=== PATIENT | male | born 1995 | race Two or more races ===

== ENCOUNTER 2017-09-06 01:08 | Emergency (ER) | payer OTHER ==
--- NOTE | 2017-09-06 01:54 | ED PDOC ---
HPI: Psych/Substance Abuse Chief Complaint (Provider): psych eval History Per: EMS, Family Additional Complaint(s): 22 y/o male brought in by EMS and PD for psych eval. As per EMS, mother called because patient has been off of his psychiatric medication x months and was acting bizarre at home tonight and also became aggressive towards her. Patient agitated upon arrival, HPI slightly limited due to patient's current state. <Mery Mohan - Last Filed: 09/06/17 05:47> <Guevara Mohan - Last Filed: 09/06/17 06:37> Time Seen by Provider: 09/06/17 01:21 Chief Complaint (Nursing): Psychiatric Evaluation Past Medical History Reviewed: Historical Data, Nursing Documentation, Vital Signs Vital Signs: Last Vital Signs Temp Pulse 87 09/06/17 01:21 Resp 18 09/06/17 01:21 BP 144/84 09/06/17 01:21 Pulse Ox - Medical History PMH: Schizophrenia - Surgical History Surgical History: No Surg Hx - Family History Family History: States: No Known Family Hx <Mery Mohan - Last Filed: 09/06/17 05:47> Vital Signs: Last Vital Signs Temp Pulse 69 09/06/17 04:47 Resp 16 09/06/17 04:47 BP 105/59 L 09/06/17 04:47 Pulse Ox 99 09/06/17 04:47 <Guevara Mohan - Last Filed: 09/06/17 06:37> - Allergies Allergies/Adverse Reactions: Allergies Allergy/AdvReac Type Severity Reaction Status Date / Time No Known Allergies Allergy Verified 09/06/17 01:12 Review of Systems ROS Statement: Except As Marked, All Systems Reviewed And Found Negative Psych: Positive for: Psychosis <Mery Mohan - Last Filed: 09/06/17 05:47> Physical Exam - Reviewed Nursing Documentation Reviewed: Yes Vital Signs Reviewed: Yes - Physical Exam Appears: Positive for: Well, Non-toxic, Uncomfortable (agitated) Head Exam: Positive for: ATRAUMATIC, NORMAL INSPECTION, NORMOCEPHALIC Skin: Positive for: Normal Color Eye Exam: Positive for: Normal appearance ENT: Positive for: Normal ENT Inspection Cardiovascular/Chest: Positive for: Regular Rate, Rhythm Respiratory: Positive for: Normal Breath Sounds Gastrointestinal/Abdominal: Positive for: Normal Exam Back: Positive for: Normal Inspection Extremity: Positive for: Normal ROM Neurologic/Psych: Positive for: Alert, Oriented (x3) <Mery Mohan - Last Filed: 09/06/17 05:47> - Laboratory Results Result Diagrams: 09/06/17 02:47 09/06/17 02:47 - Progress ED Course And Treament: Patient uncooperative, out in hallway after being asked to stay in exam room. Patient verbally aggressive towards staff Patient unwilling to comply with alternative measures offered; medicated for acute agitation/safety 2:00 Patient sleeping; vitals stable on monitor 3:30 Patient sleeping; vitals stable on monitor 5:00 Patient sleeping; vitals stable on monitor <Mery Mohan - Last Filed: 09/06/17 05:47> - Laboratory Results Result Diagrams: 09/06/17 02:47 09/06/17 02:47 <Guevara Mohan - Last Filed: 09/06/17 06:37> Medical Decision Making Medical Decision Makin Resting comfortably, will endorse to day team Dr. Ballard pending final dispo by crisis <Guevara Mohan - Last Filed: 09/06/17 06:37> Disposition - Disposition Disposition Time: 06:00 Patient Signed Over To: Guevara Mohan Handoff Comments: pending re-eval by crisis and final dispo <Mery Mohan - Last Filed: 09/06/17 05:47> - Disposition Disposition Time: 07:00 Patient Signed Over To: Ned Ballard <Guevara Mohan - Last Filed: 09/06/17 06:37> - Clinical Impression Clinical Impression: Schizophrenia - Disposition Condition: STABLE Forms: [employer] (Uruguayan)
[2017-09-06 03:10] LABS: BASO % 0.7 % (0.0-2.0); EOS # 0.3 K/uL (0.0-0.7); EOS % 4.8 % (0.0-4.0); HEMOGLOBIN 13.6 g/dL (12.0-18.0); LYMPH # 2.1 K/uL (1.0-4.3); LYMPH % 33.8 % (20.0-40.0); MEAN CELL VOLUME 90.9 fl (80.0-94.0); MEAN CORPUSCULAR HEMOGLOBIN 31.5 pg (27.0-31.0); MEAN CORPUSCULAR HGB CONC 34.6 g/dL (33.0-37.0); MEAN PLATELET VOLUME 9.6 fl (7.2-11.7); MONO # 0.5 K/uL (0.0-0.8); MONO % 8.6 % (0.0-10.0); NEUT # 3.2 K/uL (1.8-7.0); NEUT % 52.1 % (50.0-75.0); RBC 4.32 Mil/uL (4.40-5.90); RED CELL DISTRIBUTION WIDTH 13.3 % (11.5-14.5); WHITE BLOOD COUNT 6.2 K/uL (4.8-10.8)
[2017-09-06 03:11] LABS: ALB/GLOB RATIO 1.4 (1.0-2.1); ALBUMIN 4.2 g/dL (3.5-5.0); ALT/SGPT 21 U/L (21-72); AST/SGOT 27 U/L (17-59); BLOOD UREA NITROGEN 12 mg/dl (9-20); CALCIUM 9.3 mg/dL (8.4-10.2); GFR AFRICAN-AMERICAN > 60; GFR NON-AFRICAN AMERICAN > 60
--- NOTE | 2017-09-06 07:12 | ED PDOC ---
- Laboratory Results Result Diagrams: 09/06/17 02:47 09/06/17 02:47 Interpretation Of Abn Labs: no acute - ECG ECG: Positive for: Interpreted By Me, Viewed By Me ECG Rhythm: Positive for: Normal QRS, Normal ST Segment, Sinus Rhythm O2 Sat by Pulse Oximetry: 99 Pulse Ox Interpretation: Normal - Radiology X-Ray: Interpreted by Me, Viewed By Me X-Ray Interpretation: No Acute Disease - Progress ED Course And Treament: 700: Took over care from Dr. Mohan. Fu on crisis. 1140: Medically cleared and pending [facility] [place] eval. 1630: Dr. Franklin to take over care. Fu on [facility] [place]. Disposition - Clinical Impression Clinical Impression: Schizophrenia - POA Present On Arrival: None - Disposition Disposition: Transfer of Care Disposition Time: 16:28 Condition: STABLE Patient Signed Over To: Preston Franklin
[2017-09-06 10:36] LABS: BARBITURATES, UR NEGATIVE (NEGATIVE); BENZODIAZEPINES, UR NEGATIVE (NEGATIVE); OPIATES, UR NEGATIVE (NEGATIVE); PHENCYCLIDINE, UR NEGATIVE (NEGATIVE)
[2017-09-06 11:02] LABS: URINE BACTERIA RARE (<OCC); URINE BILIRUBIN NEGATIVE (NEGATIVE); URINE BLOOD NEGATIVE (NEGATIVE); URINE CLARITY SLIGHTY-CLOUDY (Clear); URINE COLOR YELLOW (YELLOW); URINE GLUCOSE (UA) NEG (Normal); URINE LEUKOCYTE ESTERASE NEG Leu/uL (Negative); URINE PROTEIN NEGATIVE (NEGATIVE)
--- NOTE | 2017-09-06 12:32 | RAD ---
Date of service: 09/06/2017 HISTORY: psych eval COMPARISON: No prior. FINDINGS: LUNGS: No active pulmonary disease. PLEURA: No significant pleural effusion identified, no pneumothorax apparent. CARDIOVASCULAR: Normal. OSSEOUS STRUCTURES: No significant abnormalities. VISUALIZED UPPER ABDOMEN: Normal. OTHER FINDINGS: None. IMPRESSION: No active disease. Concordant results with the preliminary interpretation rendered by the emergency department physician procedure.
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
--- NOTE | 2017-09-06 18:06 | ED PDOC ---
- Laboratory Results Result Diagrams: 09/06/17 02:47 09/06/17 02:47 - ECG O2 Sat by Pulse Oximetry: 98 (RA) Pulse Ox Interpretation: Normal Medical Decision Making Medical Decision Making: Time: 17:00 --Patient endorsed to this provider by Dr. Ballard pending bed at [facility] [place]. Time: 19:00 --Patient endorsed to Dr. Mohan by this provider, pending bed at [facility] [place]. Scribe Attestation: Documented by Kath Bruno, acting as a scribe for Preston Franklin MD Provider Scribe Attestation: All medical record entries made by the Scribe were at my direction and personally dictated by me. I have reviewed the chart and agree that the record accurately reflects my personal performance of the history, physical exam, medical decision making, and the department course for this patient. I have also personally directed, reviewed, and agree with the discharge instructions and disposition. Disposition - Clinical Impression Clinical Impression: Schizophrenia - POA Present On Arrival: None - Disposition Disposition: Transfer of Care Disposition Time: 19:00 Condition: STABLE Forms: [employer] (Ivorian) Patient Signed Over To: Guevara Mohan
--- NOTE | 2017-09-07 06:27 | ED PDOC ---
- Laboratory Results Result Diagrams: 09/06/17 02:47 09/06/17 02:47 - ECG O2 Sat by Pulse Oximetry: 99 Medical Decision Making Medical Decision Makin:00 Patient endorsed to me by Dr. Franklin pending [facility] screen. 02:00 Patient was seen and accepted by [facility] pending bed. 07:[address] Manzanares pending [facility] bed availability. ----- Scribe Attestation: Documented by Rk Ward, acting as a scribe for Guevara Mohan MD. Provider Scribe Attestation: All medical record entries made by the Scribe were at my direction and personally dictated by me. I have reviewed the chart and agree that the record accurately reflects my personal performance of the history, physical exam, medical decision making, and the department course for this patient. I have also personally directed, reviewed, and agree with the discharge instructions and disposition. Disposition - Clinical Impression Clinical Impression: Schizophrenia - POA Present On Arrival: None - Disposition Disposition: Transfer of Care Disposition Time: 07:00 Condition: STABLE Forms: [employer] (Azeri) Patient Signed Over To: Joselito Manzanares III Handoff Comments: pending [facility] bed availability
--- NOTE | 2017-09-07 07:04 | ED PDOC ---
- Laboratory Results Result Diagrams: 09/06/17 02:47 09/06/17 02:47 - ECG O2 Sat by Pulse Oximetry: 99 Medical Decision Making Medical Decision Making: Time: 0700 --Patient is endorsed to provider by Dr. Mohan, pending [facility] bed availability. Day shift patient had brief periods agitation but responded to redirection Psychiatry saw patient in ED Endorse 3p Dr Clay pending [facility] bed avail. Scribe Attestation: Documented by Imelda Claros, acting as a scribe for Joselito Manzanares III, DO. Provider Scribe Attestation: All medical record entries made by the Scribe were at my direction and personally dictated by me. I have reviewed the chart and agree that the record accurately reflects my personal performance of the history, physical exam, medical decision making, and the department course for this patient. I have also personally directed, reviewed, and agree with the discharge instructions and disposition. Disposition - Clinical Impression Clinical Impression: Schizophrenia - POA Present On Arrival: None - Disposition Disposition: Transfer of Care Disposition Time: 15:33 Condition: STABLE Forms: [employer] (Chadian) Patient Signed Over To: Osiris Clay
[2017-09-07] MEDS ORDERED: DiphenhydrAMINE 50 mg/ml Inj IM STA (09:53)
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
[2017-09-07] MEDS ORDERED: DiphenhydrAMINE 50 mg/ml Inj ONE (13:48)
--- NOTE | 2017-09-07 18:30 | ED PDOC ---
- Laboratory Results Result Diagrams: 09/06/17 02:47 09/06/17 02:47 - ECG O2 Sat by Pulse Oximetry: 99 Medical Decision Making Medical Decision Makin:30 -Patient endorsed to me by Dr. Manzanares. Accepted for transfer to [facility] involuntary psych unit pending bed availability. Disposition - Clinical Impression Clinical Impression: Schizophrenia - POA Present On Arrival: None - Disposition Disposition: Transfer of Care Disposition Time: 00:00 Condition: STABLE Forms: [employer] (French) Patient Signed Over To: Collins German Handoff Comments: pending [facility] bed availability
--- NOTE | 2017-09-08 05:58 | ED PDOC ---
- Laboratory Results Result Diagrams: 09/06/17 02:47 09/06/17 02:47 - ECG O2 Sat by Pulse Oximetry: 99 Pulse Ox Interpretation: Normal Medical Decision Making Medical Decision Making: Time: 00:00 --care endorsed to provider by Dr. Clay pending [facility] availability Patient s/o to Dr Wills at 7AM Disposition - Clinical Impression Clinical Impression: Schizophrenia - POA Present On Arrival: None - Disposition Disposition: Transfer of Care Disposition Time: 07:00 Condition: FAIR Forms: [employer] (St Lucian) Patient Signed Over To: Sarah Wills Handoff Comments: pending [facility] bed availability
--- NOTE | 2017-09-08 07:05 | ED PDOC ---
- Laboratory Results Result Diagrams: 09/06/17 02:47 09/06/17 02:47 - ECG O2 Sat by Pulse Oximetry: 99 Medical Decision Making Medical Decision Making: Patient endorsed to me @0700, pending [facility] bed availability. Time: 812 -- At this time, patient started to become agitated, cursing at staff and was therefore given Ativan 2 mg IM and Benadryl 50 mg IM. Time: 1418 -- Patient found walking around ER and into other patient's rooms. Patient will be given Haldol 5 mg IM for further treatment. Scribe Attestation: Documented by Robin Souza acting as a scribe for Dr. Sarah Wills MD. Provider Scribe Attestation: All medical record entries made by the Scribe were at my direction and personally dictated by me. I have reviewed the chart and agree that the record accurately reflects my personal performance of the history, physical exam, medical decision making, and the department course for this patient. I have also personally directed, reviewed, and agree with the discharge instructions and disposition. Disposition - Clinical Impression Clinical Impression: Schizophrenia - POA Present On Arrival: None - Disposition Disposition: Transfer of Care Disposition Time: 15:00 Condition: STABLE Forms: [employer] (Georgian) Patient Signed Over To: Ned Ballard
[2017-09-08] MEDS ORDERED: DiphenhydrAMINE 50 mg/ml Inj IM STA (08:13)
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
--- NOTE | 2017-09-08 15:28 | ED PDOC ---
- Laboratory Results Result Diagrams: 09/06/17 02:47 09/06/17 02:47 - ECG O2 Sat by Pulse Oximetry: 99 - Progress ED Course And Treament: 2357: Stable. Dr. German to fu on [facility] [place]. Medical Decision Making Medical Decision Making: Time: 1500 --22 year old male, pending [facility] [place] bed availability, is endorsed to provider by Dr. Wills. Scribe Attestation: Documented by Imelda Claros, acting as a scribe for Ned Ballard MD. Provider Scribe Attestation: All medical record entries made by the Scribe were at my direction and personally dictated by me. I have reviewed the chart and agree that the record accurately reflects my personal performance of the history, physical exam, medical decision making, and the department course for this patient. I have also personally directed, reviewed, and agree with the discharge instructions and disposition. Disposition - Clinical Impression Clinical Impression: Schizophrenia - POA Present On Arrival: None - Disposition Disposition: Transfer of Care Disposition Time: 23:58 Condition: STABLE Patient Signed Over To: Collins German
--- NOTE | 2017-09-09 00:06 | ED PDOC ---
- Laboratory Results Result Diagrams: 09/06/17 02:47 09/06/17 02:47 - ECG O2 Sat by Pulse Oximetry: 99 Medical Decision Making Medical Decision Makin:00 Patient endorsed to provider by Dr. Ballard, [place] [facility] [place] Patient s/o to Dr Manzanares at 7AM pending [facility] [place] Disposition - Clinical Impression Clinical Impression: Schizophrenia - POA Present On Arrival: None - Disposition Disposition: Routine/Home Disposition Time: 07:00 Condition: FAIR Forms: [employer] (Guinean)
[2017-09-09] MEDS ORDERED: DiphenhydrAMINE 50 mg/ml Inj IM STA (07:14)
--- NOTE | 2017-09-09 07:15 | ED PDOC ---
- Laboratory Results Result Diagrams: 09/06/17 02:47 09/06/17 02:47 - ECG O2 Sat by Pulse Oximetry: 99 Medical Decision Making Medical Decision Making: received 7am pending [facility] [place]. Patient demonstrating moderate agitation, pacing this morning with poor insight and poor coopertivity. Additional medications ordered for relief of agitation. 3pm pacing but able to be redirected endorse Dr Ballard pending bed availability Disposition - Clinical Impression Clinical Impression: Schizophrenia - POA Present On Arrival: None - Disposition Disposition: Transfer of Care Disposition Time: 15:05 Condition: STABLE Forms: [employer] (Kazakh) Patient Signed Over To: Ned Ballard
--- NOTE | 2017-09-09 15:21 | ED PDOC ---
- Laboratory Results Result Diagrams: 09/06/17 02:47 09/06/17 02:47 - ECG O2 Sat by Pulse Oximetry: 99 (RA) Pulse Ox Interpretation: Normal - Progress ED Course And Treament: 2354: Dr. German to take over care. [facility]. Medical Decision Making Medical Decision Making: Patient signed out to provider from Dr. Manzanares at [address] [facility] bed placement. - Documented by Charito Narvaez acting as a scribe for Ned Ballard MD. All medical record entries made by the Scribe were at my direction and personally dictated by me. I have reviewed the chart and agree that the record accurately reflects my personal performance of the history, physical exam, medical decision making, and the department course for this patient. I have also personally directed, reviewed, and agree with the discharge instructions and disposition. Disposition - Clinical Impression Clinical Impression: Schizophrenia - POA Present On Arrival: None - Disposition Disposition: Transfer of Care Disposition Time: 23:54 Condition: STABLE
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
--- NOTE | 2017-09-09 23:57 | ED PDOC ---
- Laboratory Results Result Diagrams: 09/06/17 02:47 09/06/17 02:47 - ECG O2 Sat by Pulse Oximetry: 99 (RA) Pulse Ox Interpretation: Normal Medical Decision Making Medical Decision Making: Time: 2354 Patient endorsed to provider by Dr. Ballard, pending [facility] bed availability. Time: 020 Patient attempted to elope from the ER. Ativan 2mg, Haldol 5mg and Benadryl 50mg ordered for relief of agitation. Time: 0700 Patient resting in room, vitals stable. Patient signed out to Dr. Beebe pending [facility] bed availability. Scribe Attestation: Documented by Della Ceballos, acting as a scribe for Collins German MD. Provider Scribe Attestation: All medical record entries made by the Scribe were at my direction and personally dictated by me. I have reviewed the chart and agree that the record accurately reflects my personal performance of the history, physical exam, medical decision making, and the department course for this patient. I have also personally directed, reviewed, and agree with the discharge instructions and disposition. Disposition - Clinical Impression Clinical Impression: Schizophrenia - POA Present On Arrival: None - Disposition Disposition: Transfer of Care Disposition Time: 07:00 Condition: STABLE Forms: [employer] (Surinamese) Patient Signed Over To: Joey Beebe
[2017-09-10] MEDS ORDERED: DiphenhydrAMINE 50 mg/ml Inj IM STA (02:08)
--- NOTE | 2017-09-10 07:16 | ED PDOC ---
- Laboratory Results Result Diagrams: 09/06/17 02:47 09/06/17 02:47 - ECG O2 Sat by Pulse Oximetry: 99 (RA) Medical Decision Making Medical Decision Making: Time: 07:00 --Patient care endorsed from Dr. German to Dr. Beebe pending bed availability at [place]. Disposition - Clinical Impression Clinical Impression: Schizophrenia - POA Present On Arrival: None - Disposition Disposition: Transfer of Care Disposition Time: 17:05 Condition: FAIR Forms: [employer] (French) Patient Signed Over To: Jaspreet Smart
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
--- NOTE | 2017-09-10 12:41 | CARD ---
APPROVED REPORT Date of service: 09/06/2017 EKG Measurement Heart [id number] <Conclusion> Marked sinus bradycardia with sinus arrhythmia ST elevation, consider early repolarization, pericarditis, or injury Abnormal ECG
--- NOTE | 2017-09-10 18:19 | ED PDOC ---
- Laboratory Results Result Diagrams: 09/06/17 02:47 09/06/17 02:47 - ECG O2 Sat by Pulse Oximetry: 98 (RA) Pulse Ox Interpretation: Normal - Progress ED Course And Treament: 17:00 --Care transferred (received from Dr Beebe) pending bed placement at [facility]. Patient was already accepted at [facility]. --was medically cleared by the previous attendings. --Will continue to monitor patient. 1900 pt has a bed available at [facility] Dr Harry accepted patient pt remained at baseline mental status pt is watching tv currently pt will be transferred to [facility] psych unit for further eval/mgt/txt Re-evaluation Time: 19:01 Condition: Unchanged Disposition Discussed With : Piero - Clinical Impression Clinical Impression: Schizophrenia, Medical clearance for psychiatric admission - POA Present On Arrival: None - Disposition Disposition: Other Institution ([facility] involuntary PSYCH UNIT) Disposition Time: 19:03 Condition: STABLE Forms: [employer] (Japanese)
[2017-09-10 23:05] VITALS: BP 107/65; PULSE 52; RESP 18; TEMP 97.8; O2SAT 100
== END 2017-09-10 23:16 | disposition short-term general hospital (02) ==
LOC: H.ER 01:08
DX: F20.9 Schizophrenia, unspecified (principal)
CPT/HCPCS: 71045; 80053; 80320; 80324; 80345; 80346; 80349; 80353; 80358; 80361; 81003; 83992; 85025; 93005; 96372; 99285; J1200; J1630; J2060

== ENCOUNTER 2018-05-25 22:12 | Emergency (ER) | payer SELFPAY ==
[2018-05-25 22:13] VITALS: BMI 25.7
[2018-05-25 23:17] LABS: BARBITURATES, UR NEGATIVE (NEGATIVE); BENZODIAZEPINES, UR NEGATIVE (NEGATIVE); OPIATES, UR NEGATIVE (NEGATIVE); PHENCYCLIDINE, UR NEGATIVE (NEGATIVE)
--- NOTE | 2018-05-25 23:41 | ED PDOC ---
HPI: Psych/Substance Abuse Time Seen by Provider: 05/25/18 22:24 Chief Complaint (Nursing): Substance Abuse Chief Complaint (Provider): Substance abuse History Per: Patient History/Exam Limitations: no limitations Onset/Duration Of Symptoms: Hrs Current Symptoms Are (Timing): Still Present Associated Symptoms: denies: Suicidal Thoughts, Suicidal Plan Additional Complaint(s): Carlos Enrique Nobles is a 22 year old male, with a past medical history of schizophrenia, who presents to the emergency department for evaluation after he smoked cracked approximately x2 hours prior to arrival. Patient reports hearing "voices in the air" telling him that he needed to go to the hospital. Patient states voices are not persecutory. He denies any suicidal or homicidal ideation. He denies any alcohol use or other drug ingestion such as methamphetamine. No further medical complaints. PMD: None provided Past Medical History Reviewed: Historical Data, Nursing Documentation, Vital Signs Vital Signs: Last Vital Signs Temp 97.4 F L 05/25/18 22:19 Pulse 75 05/25/18 22:19 Resp 18 05/25/18 22:19 BP 117/75 05/25/18 22:19 Pulse Ox 99 05/25/18 22:19 - Medical History PMH: Schizophrenia Denies: Diabetes, Hepatitis, HIV, HTN, Seizures, Sexually Transmitted Disease - Surgical History Surgical History: No Surg Hx - Family History Family History: States: Unknown Family Hx - Social History Alcohol: Other Drugs: Cocaine (Crack) - Home Medications Home Medications: Ambulatory Orders Medication Instructions Recorded No Known Home Med 09/06/17 - Allergies Allergies/Adverse Reactions: Allergies Allergy/AdvReac Type Severity Reaction Status Date / Time No Known Allergies Allergy Verified 09/06/17 01:12 Review of Systems ROS Statement: Except As Marked, All Systems Reviewed And Found Negative Psych: Positive for: Other (auditory hallucination). Negative for: Suicidal ideation (or homicidal ideation) Physical Exam - Reviewed Nursing Documentation Reviewed: Yes Vital Signs Reviewed: Yes - Physical Exam Appears: Positive for: No Acute Distress Head Exam: Positive for: ATRAUMATIC, NORMAL INSPECTION, NORMOCEPHALIC Skin: Positive for: Normal Color, Warm, Dry Eye Exam: Positive for: Normal appearance, EOMI, PERRL Neck: Positive for: Normal, Painless ROM Cardiovascular/Chest: Positive for: Regular Rate, Rhythm. Negative for: Murmur Respiratory: Positive for: Normal Breath Sounds. Negative for: Respiratory D istress Gastrointestinal/Abdominal: Positive for: Normal Exam, Soft. Negative for: Tenderness Back: Positive for: Normal Inspection Extremity: Positive for: Normal ROM (upper and lower extremities). Negative for: Deformity, Swelling Neurological/Psych: Positive for: Awake, Alert, Normal Tone, Mood/Affect (strange affect) - ECG O2 Sat by Pulse Oximetry: 99 (RA) Pulse Ox Interpretation: Normal Medical Decision Making Medical Decision Making: Time: 22:24 A/P: 22 year old male with a past medical history of schizophrenia presents with substance induced mood disorder. Patient doesn't pose a risk to himself or others. At this time will obtain a crisis evaluation. Initial Plan: --Urine drug screen --Reevaluation 630 --Patient rested in ER all night, comfortable, cooperative, without bizarre behavior, exhibited clear speech and normal mentation. Patient cleared for discharge by crisis with diagnosis of substance abuse by Dr. Livingston Scribe Attestation: Documented by Tj Boateng, acting as a scribe for Guevara Mohan MD Provider Scribe Attestation: All medical record entries made by the Scribe were at my direction and personally dictated by me. I have reviewed the chart and agree that the record accurately reflects my personal performance of the history, physical exam, medical decision making, and the department course for this patient. I have also personally directed, reviewed, and agree with the discharge instructions and disposition. Disposition - Clinical Impression Clinical Impression: Substance abuse - Disposition Referrals: [facility] [Outside] Disposition: Routine/Home Disposition Time: 06:35 Condition: STABLE Instructions: Polysubstance Abuse (DC) Forms: [employer] (Maltese)
[2018-05-26 07:01] VITALS: BP 112/76; PULSE 81; RESP 16; TEMP 97.8; O2SAT 100
== END 2018-05-26 06:55 | disposition home or self-care (01) ==
LOC: H.ER 22:12
DX: F19.10 Other psychoactive substance abuse, uncomplicated (principal); F20.9 Schizophrenia, unspecified
CPT/HCPCS: 99284; G0480